=== PATIENT | male | born 1960 | race Caucasian/White ===

== ENCOUNTER 2018-06-26 23:57 | Emergency (ER) | payer SELFPAY ==
[~2018-06-26] VITALS: Ht 175.3 cm; Wt 72.6 kg
[2018-06-27 00:05] VITALS: BP 147/89
[2018-06-27] MEDS ORDERED: ORPH100T PO (01:08)
[2018-06-27] MEDS ORDERED: NAPR375T5 PO (01:08)
--- NOTE | 2018-06-27 01:09 | PHYS DOC ---
Past Medical History Past Medical History: No Pertinent History Additional Past Surgical Histo: Bilateral Inguinal hernias Smoking: Quit Greater Than 1 Year Alcohol Use: Occasionally Drug Use: None Adult General Chief Complaint Chief Complaint: LOWER BACK PAIN OR INJURY HPI HPI 58-year-old male presents with report of low back pain primarily to right low back. Denies radiation of pain. Reports this is been ongoing for the last 2 weeks but tonight became much worse. Denies any fever or chills. Denies known trauma. Denies loss of bowel or bladder. Denies rash. Review of Systems Review of Systems Constitutional: Denies fever or chills [] Eyes: Denies change in visual acuity, redness, or eye pain [] HENT: Denies nasal congestion or sore throat [] Respiratory: Denies cough or shortness of breath [] Cardiovascular: Denies chest pain or palpitations GI: Denies abdominal pain, nausea, vomiting, or diarrhea [] : Denies dysuria or hematuria [] Musculoskeletal: Denies back pain or joint pain [] Integument: Denies rash or skin lesions [] Neurologic: Denies headache, focal weakness or sensory changes; denies loss of bowel or bladder Complete systems were reviewed and found to be within normal limits, except as documented in this note. Current Medications Current Medications Current Medications Medications (Trade) Dose Ordered Sig/Maddy Start Time Stop Time Status Last Admin Dose Admin Cyclobenzaprine HCl (Flexeril) 10 mg 1X ONCE 06/27/18 01:15 06/27/18 01:16 DC 06/27/18 01:18 10 MG Dexamethasone (Decadron) 10 mg 1X ONCE 06/27/18 01:15 06/27/18 01:16 DC 06/27/18 01:20 10 MG Ketorolac Tromethamine (Toradol 30mg Vial) 30 mg 1X ONCE 06/27/18 01:15 06/27/18 01:16 DC 06/27/18 01:21 30 MG Allergies Allergies Allergies Coded Allergies Type Severity Reaction Last Updated Verified No Known Drug Allergies 06/27/18 No Physical Exam Physical Exam Constitutional: Well developed, well nourished, no acute distress, non-toxic appearance. [] HENT: Normocephalic, atraumatic, oropharynx moist Eyes: Conjunctiva normal, no discharge. [] Neck: Normal range of motion, no tenderness, supple Cardiovascular: Heart rate regular rhythm, no murmur [] Lungs & Thorax: Bilateral breath sounds clear to auscultation [] Abdomen: Soft, no tenderness Skin: Warm, dry, no erythema, no rash. [] Back: No midline tenderness, no CVA tenderness; right paraspinal tenderness noted to lumbar region Extremities: No tenderness, ROM intact, no edema.; pelvis stable and nontender Neurologic: Alert and oriented X 3, no focal deficits noted. [] Psychologic: Affect normal, judgement normal, mood normal. [] EKG EKG [] Radiology/Procedures Radiology/Procedures [] Course & Med Decision Making Course & Med Decision Making Patient presents with history of present illness and physical exam consistent for acute low back pain. No midline spinal tenderness appreciated. Patient de nies known trauma. Ice applied. Symptomatic treatment provided with interval improvement of symptoms. Patient stable for discharge with outpatient follow-up with PCP/pain specialist. Pain specialist referral provided. Discussed findings and plan with patient and friend, who acknowledge understanding and agreement. Dragon Disclaimer Dragon Disclaimer This electronic medical record was generated, in whole or in part, using a voice recognition dictation system. Departure Departure Impression: Primary Impression: Back pain Disposition: HOME, SELF-CARE Condition: STABLE Referrals: NO PCP (PCP) CARMEN OCONNELL MD Patient Instructions: Back Pain, Adult, [id number] Scripts Orphenadrine Citrate (ORPHENADRINE CITRATE) 100 Mg Tablet.er 100 MG PO BID PRN for MUSCLE PAIN, #14 Prov: JACKIE HYATT DO 06/27/18 Naproxen (NAPROXEN) 375 Mg Tablet.dr 375 MG PO TID PRN PRN for PAIN, #30 TAB.SR Prov: JACKIE HYATT DO 06/27/18 Problem Qualifiers Primary Impression: Back pain Back pain location: low back pain Chronicity: acute Back pain laterality: right Sciatica presence: without sciatica Qualified Codes: M54.5 - Low back pain JACKIE HYATT DO June 27, 2018 01:08
[2018-06-27] MEDS ORDERED: KETOROLAC 30 MG/ML VIAL. IM ONE (01:15)
[2018-06-27] MEDS ORDERED: CYCLOBENZAPRINE 10 MG TABLET. PO ONE (01:15)
[2018-06-27] MEDS ORDERED: DEXAMETHASONE 4 MG TABLET PO ONE (01:15)
== END 2018-06-27 01:22 | disposition home or self-care (01) ==
LOC: ER 23:57
DX: M54.5 Low back pain (principal); Z87.891 Personal history of nicotine dependence
CPT/HCPCS: 96372; 99283; J1885; J8540

== ENCOUNTER 2019-09-07 18:17 | Emergency (ER) | payer SELFPAY ==
[~2019-09-07] VITALS: Ht 175.3 cm; Wt 68.0 kg
[~2019-09-07 18:17] MED LIST: NAPR375T5 PO; ORPH100T PO
[2019-09-07] MEDS ORDERED: HYDR-3164 PO (18:37)
[2019-09-07 18:39] VITALS: BP 165/74
--- NOTE | 2019-09-07 18:46 | PHYS DOC ---
Past Medical History Past Medical History: No Pertinent History Past Surgical History: Tonsillectomy, Other Additional Past Surgical Histo: Bilateral Inguinal hernias Smoking Status: Former Smoker Alcohol Use: Occasionally Drug Use: None General Adult EDM: Chief Complaint: OTHER COMPLAINTS HPI: HPI: Patient is a 59 year old now presents with jaw pain left side over the TMJ area for couple of days saw his doctor for similar pain 2 months ago they thought it was arthritis give Naprosyn he tried that it did not help no fever no dental pain no recent dental procedures no chest pain no headache otherwise no sick contacts or exposures. No past medical history no daily medications besides Naprosyn no drug allergies. Medical decision making overall I think it is probably a TMJ related symptom and given just a couple of days of Alexander as well as contact information to follow-up with a dentist return precautions discussed in detail patient voiced understanding he was given good Narcotic precautions including do not drive and only take this for 3-4 days maximum. Review of Systems: Review of Systems: Constitutional: Denies fever or chills. [] Eyes: Denies change in visual acuity. [] HENT: Denies nasal congestion or sore throat. [] Respiratory: Denies cough or shortness of breath. [] Heart Score: Risk Factors: Risk Factors: DM, Current or recent (<one month) smoker, HTN, HLP, family history of CAD, obesity. Risk Scores: Score 0 - 3: 2.5% MACE over next 6 weeks - Discharge Home Score 4 - 6: 20.3% MACE over next 6 weeks - Admit for Clinical Observation Score 7 - 10: 72.7% MACE over next 6 weeks - Early Invasive Strategies Allergies: Allergies: Allergies Coded Allergies Type Severity Reaction Last Updated Verified No Known Drug Allergies 06/27/18 No Physical Exam: PE: Constitutional: Well developed, well nourished, no acute distress, non-toxic appearance. [] HENT: Normocephalic, atraumatic, there is tenderness to palpation of the TMJ joint on the left no erythema no induration no tenderness over the parotid gland no obvious abnormalities of the teeth. No periapical infections were identified no lymphadenopathy was seen. Eyes: PERRLA, EOMI, conjunctiva normal, no discharge. [] Neck: Normal range of motion, no tenderness, supple, no stridor. [] Normal respiratory effort no increased work of breathing Back: No tenderness, no CVA tenderness. [] Extremities: No tenderness, no cyanosis, no clubbing, ROM intact, no edema. [] Neurologic: Alert and oriented X 3, normal motor function, normal sensory function, no focal deficits noted. [] Psychologic: Affect normal, judgement normal, mood normal. [] Current Patient Data: Vital Signs: Blood pressure was somewhat elevated likely related to pain. See nurses note for complete vitals EKG: EKG: [] Radiology/Procedures: Radiology/Procedures: [] Course & Med Decision Making: Course & Med Decision Making Pertinent Labs and Imaging studies reviewed. (See chart for details) [] See HPI Dragon Disclaimer: Dragon Disclaimer: This electronic medical record was generated, in whole or in part, using a voice recognition dictation system. Departure Departure Impression: Primary Impression: Jaw pain Disposition: 01 HOME, SELF-CARE Condition: STABLE Patient Instructions: Temporomandibular Joint Pain-Brief Scripts Hydrocodone/Apap 5-325 (NORCO 5-325 TABLET) 1 Each Tablet 1-2 EACH PO PRN Q6HRS PRN for PAIN, #15 as needed for pain Prov: JULIA PETERSON MD 09/07/19 Justicifation of Admission Dx: Justifications for Admission: Justification of Admission Dx: N/A JULIA PETERSON MD Sep 07, 2019 18:46
== END 2019-09-07 19:05 | disposition home or self-care (01) ==
LOC: ER 18:17
DX: R68.84 Jaw pain (principal); Z90.89 Acquired absence of other organs; Z98.890 Other specified postprocedural states; Z87.891 Personal history of nicotine dependence
CPT/HCPCS: 99283